=== PATIENT | female | born 1965 | race Two or more races ===

== ENCOUNTER 2017-08-31 06:02 | Day surgery (SDC) | payer OTHER ==
--- NOTE | 2017-08-11 09:02 | CONS ---
DATE OF ADMISSION: 02/27/2017 DATE OF CONSULTATION: 02/27/2017 HISTORY OF PRESENT ILLNESS: I thank you very much for this kind referral. Ms. Daniel is a 51-year-old female patient who has been referred to me for further evaluation of abdominal pain. The patient states she has pain in both in the upper part as well as the lower part of the abdomen. There is no definite past history of peptic ulcer disease. The patient has tried omeprazole and Zantac without much relief of the symptoms. She is not taking any nonsteroidal anti-inflammatory agents. Her appetite has been good, and she is not losing any weight. There is no history of gallstones or liver disease. The patient had a screening colonoscopy 2 years ago, and no colon neoplasm was identified. She was noted to have occasional diverticulosis of the colon. She underwent abdominal ultrasound as well as a CT scan and they were normal. No history of gallstones or liver disease. She is hypertensive. She has diabetes. No history of heart disease, lung problem, or kidney disease. She has hyperlipidemia. She is status post-hysterectomy. SOCIAL HISTORY: Nonsmoker. No history of alcohol abuse. FAMILY HISTORY: Negative for gastrointestinal tract neoplasm. ALLERGIES: NO DRUG ALLERGIES. MEDICATION: Lisinopril, metformin, atorvastatin. PHYSICAL EXAMINATION: VITAL SIGNS: He is 5 feet, tall, and weighs 140 pounds. HEART: Normal heart sounds. LUNGS: Clear. ABDOMEN: Soft. No masses. Normal bowel sounds. NEUROLOGIC: Normal neurological exam. IMPRESSION: 1. Upper and lower abdominal pain not responding to therapy with omeprazole and Zantac. 2. Abdominal ultrasound and CT scan and normal. Screening colonoscopy. Revealed occasional diverticulosis of the colon. 3. Hypertension. 4. Diabetes mellitus. 5. Hyperlipidemia. 6. Status post-hysterectomy. PLAN: Upper endoscopy for further evaluation. The procedure and possible complications were well explained to the patient. She understands and consents to the procedure. I thank you once again, with warmest personal regards the patient. Dictated By: MD BACILIO Joya/nessa/robert /Document#: [id number]
[~2017-08-31] VITALS: Ht 152.4 cm; Wt 60.4 kg
[~2017-08-31 06:02] MED LIST: ATORVASTATIN PO; LISINOPRIL PO; METFORMIN PO
[2017-08-31] MEDS ORDERED: ASPIRIN (07:15)
[2017-08-31] MEDS ORDERED: OMEPRAZOLE (07:15)
[2017-08-31] MEDS ORDERED: ZANTAC (07:15)
[2017-08-31] MEDS ORDERED: MIDAZOLAM 1 MG/ML 2 ML INJ ONE (07:50)
[2017-08-31] MEDS ORDERED: FENTAnyl 50 MCG/ML VIAL ONE (07:50)
--- NOTE | 2017-08-31 07:50 | OPPN ---
Date/Time of Note Date/Time of Note DATE: 08/31/17 TIME: 07:49 Operative Report Preoperative Diagnosis Abdominal pain Chronic heartburn Postoperative Diagnosis Hiatal hernia Gastroesophageal reflux disease Gastritis with erosions Operation/Procedure Performed Esophagogastroduodenoscopy and biopsy Surgeon see signature line bookkeeping assistant None Anesthesia: moderate sedation Estimated blood loss: none Transfusion Required none Specimen Gastric mucosal biopsy Grafts/Implants none Complications none AMBROSE DURAN MD Aug 31, 2017 07:50
[2017-08-31 08:20] VITALS: BP 109/57; RESP 14
--- NOTE | 2017-08-31 12:17 | GILP ---
DATE OF PROCEDURE: 08/31/2017 NAME OF PROCEDURE: Esophagogastroduodenoscopy and biopsy. SURGEON: Ambrose Davies MD PREOPERATIVE DIAGNOSES: 1. Abdominal pain. 2. Chronic heartburn. POSTOPERATIVE DIAGNOSES: 1. Hiatal hernia. 2. Gastroesophageal reflux disease. 3. Gastritis with erosions. 4. Gastric mucosal biopsies were taken for Helicobacter pylori test. INDICATION FOR THE PROCEDURE: Ms. Anaid Daniel is a 51-year-old female patient who had upper abdomi nal pain and chronic heartburn, not responding to therapy. The patient was scheduled for endoscopic examination for further evaluation. The procedure and possible complications were well explained to the patient, she understood and cons ented to the procedure. DESCRIPTION OF PROCEDURE: Under the influence of fentanyl and Versed, the gastroscope was carefully introduced into the esophagus and under direct vision, it was advanced to the stomach and through t he pylorus into the duodenal bulb and descending duodenum. FINDINGS: ESOPHAGUS: The patient had hiatal hernia and gastroesophageal reflux disease. STOMACH: She had gastritis with erosions. Gastric mucosal biopsies were taken for H. pylori test. DUODENUM: Normal. She tolerated the procedure very well and there was no complication from the procedure. At the end of the procedures, she was awake with stable vital signs and she was discharged home to the care of her family. IMPRESSION: Please see postoperative diagnosis. PLAN: 1. Continue omeprazole and Zantac 2. Await H. pylori test report. Dictated By: AMBROSE RIBERA/GRIFFIN Conf#: [id number] DID#: [id number]
== END 2017-08-31 11:18 | disposition home or self-care (01) ==
LOC: GIL 06:02
PROVIDERS: ATTEND Internal Medicine Gastroenterology
DX: R10.10 Upper abdominal pain, unspecified (principal); R10.30 Lower abdominal pain, unspecified; K21.9 Gastro-esophageal reflux disease without esophagitis; I10 Essential (primary) hypertension; E11.9 Type 2 diabetes mellitus without complications; E78.5 Hyperlipidemia, unspecified; Z90.710 Acquired absence of both cervix and uterus; K44.9 Diaphragmatic hernia without obstruction or gangrene; K25.9 Gastric ulcer, unspecified as acute or chronic, without hemorrhage or perforation; K29.70 Gastritis, unspecified, without bleeding
CPT/HCPCS: 43239; 82962; 87081; J2250; J3010